=== PATIENT | male | born 1995 | race Caucasian/White ===

== ENCOUNTER 2020-12-07 12:15 | Emergency (ER) | payer OTHER, SELFPAY ==
[2020-12-07] VITALS (11 sets, daily range): BP systolic 129–158; BP diastolic 76–100; PULSE 65–95; RESP 18–24; TEMP 36.7; O2SAT 93–99
[2020-12-07 13:02] LABS: Add Manual Diff / Slide Review NO; Alanine Aminotransferase 34 IU/L (<50); Albumin 4.9 g/dL (3.5-5.0); Albumin Globulin Ratio 1.4 (1.0-2.8); Alkaline Phosphatase 105 U/L (38-126); Aspartate Aminotransferase 29 IU/L (17-59); BUN Creatinine Ratio 14.3 (6-22); Basophils Absolute Auto 0 /uL (0-100); Basophils Percent Auto 0.5 % (0-2); Bilirubin Total 0.7 mg/dL (0.2-1.3); Blood Urea Nitrogen 11 mg/dL (9-20); Calcium 10.1 mg/dL (8.4-10.2); Carbon Dioxide 24 mmol/L (22-32); Chloride 106 mmol/L (98-107); Eosinophils Absolute Auto 200 /uL (0-450); Eosinophils Percent Auto 2.6 % (2-4); Estimated Glomerular Filt Rate > 60.0 mL/min (>60); Globulin 3.4 g/dL (1.7-4.1); Glucose 110 mg/dL (70-100); HEMOLYSIS < 15 (0-50); Hematocrit 50.8 % (41-53); Lymphocytes Absolute Auto 2300 /uL (1100-4500); Mean Corpuscular HGB Conc 33.4 % (30-36); Mean Corpuscular Hemoglobin 29.5 PG (26-34); Mean Corpuscular Volume 88.3 fL (80-100); Monocytes Absolute Auto 600 /uL (0-900); Monocytes Percent Auto 7.2 % (3-14); Neutrophils Absolute Auto 5000 /uL (1500-7000); Neutrophils Percent Auto 61.7 % (50-75); Phosphorous 2.9 mg/dL (2.5-4.5); Platelet Count 273 X10^3/uL (150-400); Potassium 4.2 mmol/L (3.4-5.1); Red Blood Cell Count 5.75 X10^6/uL (4.5-5.9); Red Cell Distribution Width 13.1 % (11.6-14.8); Sodium 140 mmol/L (137-145); Total Protein 8.3 g/dL (6.3-8.2); White Blood Cell Count 8.2 X10^3/uL (4.5-11.0)
[2020-12-07 13:19] LABS: Prolactin 47.6 ng/mL (3.7-17.9)
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
[2020-12-07] MEDS: SODIUM CHLORIDE 0.9% 1,000 ML 1000 ML IV (14:27)
--- NOTE | 2020-12-07 16:42 | PC.NURSE ---
Dr. Andrews called @ 1330. No return phone call. Called again @ 0677.
[2020-12-09 11:10] LABS: Lamotrigine Lamictal 3.3 ug/mL (2.0-20.0)
== END 2020-12-07 17:50 | disposition home or self-care (01) ==
PROVIDERS: Emergency Provider Emergency Medicine
DX: G40.909 Epilepsy, unspecified, not intractable, without status epilepticus (principal); R51.9 Headache, unspecified; R11.0 Nausea
CPT/HCPCS: 36415; 80053; 80175; 82962; 83735; 84100; 84146; 85025; 96360; 99284